=== PATIENT | female | born 1985 | race Caucasian/White ===

== ENCOUNTER → 2020-01-08 10:28 | Outpatient (CLI) | payer BC, SELFPAY ==
[2020-01-08 12:22] LABS: COVID19 -Nasal RAPID Negative (Negative)
== END ==
PROVIDERS: PCP Physician Assistant Medical; Visit Provider Physician Assistant
DX: Z11.59 Encounter for screening for other viral diseases (principal)
CPT/HCPCS: 87635

== ENCOUNTER 2020-01-10 06:37 | Day surgery (SDC) | payer OTHER, SELFPAY ==
[2020-01-07 11:52] VITALS: BMI 30.2
--- NOTE | 2020-01-10 | PATH_ITS ---
[facility] Accession Number: [id number] . 01 Material submitted: . fallopian tube - BILATERAL FALLOPIAN TUBES . 01 Clinical history: . LAPAROSCOPIC TUBAL LIGATION . 01 Diagnosis: Bilateral Fallopian Tubes, Salpingectomy: Complete cross-section of bilateral fimbriated fallopian tube lumen identified. Benign cyst with histologic features consistent with a benign serous cystadenoma. No evidence of malignancy. MRV 01/14/2020 1833 Local . 01 Electronically signed: . Rebekah Guzman MD, Pathologist NPI- [id number] . 01 Gross description: . The specimen is received in formalin, labeled bilateral fallopian tubes, and consists of two fallopian tubes measuring 6.0 cm in length by 0.6 cm in diameter and 6.5 cm in length by 0.6 cm in diameter. One fallopian tube is slightly fragmented and disrupted. The serosa is ward-pink and smooth. Sectioning reveals ward mucosa and a stellate lumen measuring 0.2 cm in diameter. Also received is a 1.5 x 1.0 x 0.6 cm, previously disrupted ward-pink cyst with a ward-pink smooth inner lining. Place Change Roof Bolter sections are submitted. . A1: Intact fallopian tube, margin en face (blue), central cross-sections, and bisected fimbria. A2: Disrupted fallopian tube, margin en face (blue), central cross-sections, and bisected fimbria. A3: Bisected cyst. ([id number]) /FRFabricio 01/11/2020 1703 Local . 01 Pathologist provided ICD-10: Z30.2 . 01 CPT . 908663 [facility]formed at: [facility] [address] [place] [address] [address], [place], [place] [id number] MD Juancho Scott MD Phone: [phone]
[2020-01-10 07:03] VITALS: BP 110/75; PULSE 94; RESP 12; TEMP 36.4; O2SAT 100; BMI 28.8
[2020-01-10] MEDS: LACTATED RINGERS 1,000 ML 100 ML IV (07:19)
--- NOTE | 2020-01-10 07:19 | PM.PREOP ---
Pre-operative Note COVID-19 COVID-19 status: Negative Result date/Date tested (Pos, Neg/Pending): 01/08/20 Interval Note History & Physical reviewed/Exam performed by Physician: Yes Changes to H&P: No
--- NOTE | 2020-01-10 07:59 | SUR.OPER ---
Lithotomy on padded OR bed, head on pillow, arms secured on padded arm boards at <90 degrees abduction. Legs secured in padded yellow fins stirrups.
[2020-01-10] MEDS: BUPIVACAINE 0.5% W/ EPI (PF) 30 ML VIAL INJ (08:05)
[2020-01-10 08:29] VITALS: BP 140/84; PULSE 83; RESP 12; TEMP 36.7; O2SAT 97
[2020-01-10 08:34] VITALS: BP 132/83; PULSE 72; RESP 8; O2SAT 98
--- NOTE | 2020-01-10 08:34 | PM.OP.1 ---
Operative Date/Time/Diagnoses Date of procedure: 01/10/20 Time of procedure: 08:34 Pre-op diagnosis: Wish for sterilization Post-op diagnosis: same Procedure & Clinicians Procedure: Laparoscopic bilateral salpingectomy for sterilization Same procedure as scheduled: Yes Indications: Wish for sterilization Surgeon: Nicole Arvizu Click Yes if Unassisted: Yes Anesthesia Type: General Operative Notes Findings: Normal intra-abdominal contents, normal uterus and ovaries, bilateral paratubal cysts Closure Type: primary Specimen(s): other (Both fallopian tubes) Estimated Blood Loss (mL): 1 Blood products transfused: none Procedure in detail: Patient was brought to the operating room where she underwent general anesthesia. She was placed in low yellowfin stirrups and prepped and draped in usual sterile fashion. Pulsatile stockings were in place and functional. Warming was with blankets. A single-tooth tenaculum was placed on the anterior lip of the cervix and the cervix dilated to #6 Hegar dilator. The Carlene uterine manipulator was placed and balloon inflated with 3 mL of air. The area of the incisions were injected with half percent Marcaine with epinephrine. An incision was made in the umbilicus with a scalpel and the Verres needle placed in the abdomen. Confirmation of correct placement of the needle was performed by withdrawing on the syringe and then allowing fluid to fall freely through the needle. The abdomen was insufflated to 4 L of CO2. A 5 mm trocar was placed under direct visualization. 2 other 5 mm trochars were placed in the right and left lower quadrant under direct visualization after incising the skin. There did not appear to be any damage with placement of the trocars. The right fallopian tube was grasped and removed by cauterizing and cutting the mesosalpinx and across the fallopian tube at the junction with the uterus with the PK generator. Same procedure was performed on the left fallopian tube. The tubes were brought up out of the abdomen. Adequate hemostasis was noted. The CO2 was allowed to escape from the abdomen. The trochars were removed. Skin was closed with 4-0 monocryl. The patient went to recovery room in good condition. Complications: none Post-operative Condition: stable Disposition: same day surgery Plan for aftercare: Home when awake and stable
[2020-01-10] MEDS: ONDANSETRON 4 MG/2 ML INJ IV (08:38)
[2020-01-10 08:39] VITALS: BP 141/79; PULSE 72; RESP 12; O2SAT 98
--- NOTE | 2020-01-10 08:40 | SUR.PHASEI ---
[address]45 Rx given for c/o mild nausea. Denies pain..
[2020-01-10 08:44] VITALS: BP 124/78; PULSE 76; RESP 15; O2SAT 99
--- NOTE | 2020-01-10 09:18 | SUR.PHASEII ---
Friend brought in. D/c instructions discussed, both voiced an understanding.
[2020-01-10 09:50] VITALS: BP 126/76; PULSE 74; RESP 16; TEMP 36.6; O2SAT 98
--- NOTE | 2020-01-10 10:13 | SUR.PHASEII ---
Dressings and peripad remained c/d/i. Pt dressed when ready and left in stable condition.
--- NOTE | 2020-01-14 12:08 | P.HPOB_ITS ---
History of Present Illness History of Present Illness Reason for admission: other (Sterilization) Narrative: Lorraine Thomas is a 34 year old female for laparoscopic bilateral salpingectomy for sterilization [facility] Surgical History (Updated 06/20/17 @ 06:10 by Conversion Provider) History of third molar tooth extraction Status post myringotomy with insertion of tube Family History (Updated 10/01/15 @ 00:00 by Conversion Provider) Father Age: 59 Hypertension High cholesterol Grandfather Age: 83 Diabetes mellitus Grandfather Cancer Social History household members: none Smoking Status: Never smoker alcohol intake: current Meds Home Medications and Allergies Home Medications Medication Instructions Recorded Confirmed Type fluticasone propionate [Flonase 1 spray INTRANASAL QDAY #1 bot 10/02/15 01/10/20 History Allergy Relief] lorazepam [Ativan] 1 mg PO PRN PRN 01/10/20 01/10/20 History ondansetron 4 mg PO Q6H PRN #8 tab 01/10/20 Rx oxycodone-acetaminophen 2 tab PO Q4-6H PRN #30 tab 01/10/20 Rx Allergies Allergy/AdvReac Type Severity Reaction Status Date / Time neomycin [NEOMYCIN] Allergy Unknown Rash Verified 01/10/20 06:57 Penicillins [PENICILLINS] Allergy Unknown Verified 12/04/19 16:01 amoxicillin [From Augmentin] Allergy Verified 01/10/20 06:51 clavulanic acid Allergy Verified 01/10/20 06:51 [From Augmentin] Review of Systems Review of Systems ROS: Yes All systems reviewed with the patient and are negative except as otherwise documented Exam Vital Signs (past 8 hours): Oxygen Delivery Method Room Air Narrative Exam Narrative: Chief Complaint: Preoperative exam Preoperative diagnosis: Undesired fertility Planned procedure: Laparoscopic tubal ligation by tubal resection History of present illness: Patient is a 34-year-old who is requesting permanent sterilization by tubal ligation. She is aware of all control options and wishes to proceed with permanent sterilization so she has no further children. Patient would prefer to have her tubes removed rather than just a tubal ligation to decrease her risk for peritoneal cancer in the future. Physical exam: HEENT exam within normal limits. Lungs are clear to auscultation and percussion. Heart is regular rate and rhythm no S3-S4 or murmurs. No thyromegaly. Abdomen is soft, nontender with no palpable organomegaly. Extremities without edema and nontender. Pelvic exam was performed 4 months ago and did not have any vulvar, vaginal, or cervical lesions. Her IUD was removed at that point. Uterus was not enlarged, nontender. No adnexal masses or tenderness. The consent form was reviewed. Risk of damage to bowel, bladder, ureters that could require opening the abdomen to repair or additional surgery. Risk of ectopic . Very low risk of infection. Very low risk for needing a blood transfusion. Consent form was signed and questions answered. Pre and postop instructions reviewed with the patient. Assessment & Plan Assessment and plan (1) Encounter for sterilization: Status: Acute Assessment & Plan narrative: Patient here for laparoscopic bilateral tubal resection for sterilization.
== END 2020-01-10 10:06 | disposition home or self-care (01) ==
PROVIDERS: PCP Physician Assistant Medical; Referring Provider Physician Assistant Medical; Visit Provider Specialist
PROC: (CPT 58671; principal; 2020-01-10 07:45)
DX: Z30.2 Encounter for sterilization (principal); D28.2 Benign neoplasm of uterine tubes and ligaments
CPT/HCPCS: 58661; 81025; J1100; J1885; J2250; J2405; J2704; J3010